=== PATIENT | female | born 1995 | race Caucasian/White ===

== ENCOUNTER 2025-07-17 15:47 | Outpatient (AMB) | payer MEDICAID, SELFPAY ==
[2025-07-17 15:56] VITALS: BP 144/85; PULSE 96; RESP 20; TEMP 36.8; O2SAT 96; BMI 33.6
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
== END 2025-07-17 16:31 | disposition home or self-care (01) ==
LOC: HODSRG 15:47
PROVIDERS: PCP Nurse Practitioner; Referring Provider Nurse Practitioner; Supervising Provider Surgery; Visit Provider Surgery
DX: K64.4 Residual hemorrhoidal skin tags (principal); K64.8 Other hemorrhoids
CPT/HCPCS: 99213; G0463

== ENCOUNTER 2025-08-18 10:53 | Outpatient (AMB) | payer MEDICAID, SELFPAY ==
[2025-08-18 11:03] VITALS: BP 138/100; PULSE 106; RESP 16; TEMP 36.7; O2SAT 98; BMI 33.4
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
== END 2025-08-18 11:49 | disposition home or self-care (01) ==
PROVIDERS: PCP Nurse Practitioner; Referring Provider Nurse Practitioner; Supervising Provider Surgery; Visit Provider Surgery
DX: K64.9 Unspecified hemorrhoids (principal)
CPT/HCPCS: 99213; G0463

== ENCOUNTER 2025-08-23 05:40 | Day surgery (SDC) | payer MEDICAID, SELFPAY ==
[2025-08-21 12:43] VITALS: BMI 33.3
--- NOTE | 2025-08-21 12:50 | EKG_ITS ---
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
[2025-08-21 13:39] LABS: Basophils # (Auto) 0.0 Thou/mm3 (0.0-0.2); Basophils % (Auto) 0 % (0-2.5); Eosinophils # (Auto) 0.1 Thou/mm3 (0.0-0.5); Eosinophils % (Auto) 2 % (0-10); Hematocrit 40.2 % (36.0-46.0); Hemoglobin 12.9 g/dL (12.0-16.0); Immature Granulocytes Auto 0.01 Thou/mm3 (0.00-0.00); Lymphocytes # (Auto) 2.2 Thou/mm3 (1.0-4.8); Lymphocytes % (Auto) 46 % (10-50); Mean Corpuscular HGB Conc 32.1 g/dl (31.0-37.0); Mean Corpuscular Hemoglobin 25.8 pg (25.0-35.0); Mean Corpuscular Volume 80 fL (80-100); Monocytes # (Auto) 0.4 Thou/mm3 (0.0-0.8); Monocytes % (Auto) 9 % (0-12); Neutrophils # (Auto) 2.1 Thou/mm3 (1.8-7.7); Neutrophils % (Auto) 43 % (37-80); Nucleated Red Blood Cell # 0.00 Thou/mm3 (0.00-0.00); Nucleated Red Blood Cell % 0 /100 WBC (0); Platelet Count 366 Thou/mm3 (140-440); RDW Standard Deviation 43.9 fL (36.4-46.3); Red Blood Count 5.00 Miln/mm3 (4.00-5.20); White Blood Count 4.8 Thou/mm3 (3.6-11.0)
[2025-08-21 13:48] LABS: Alanine Aminotransferase 33 U/L (10-49); Albumin, Serum 4.7 gm/dL (3.5-5.0); Albumin/Globulin Ratio 1.4 (1.2-2.2); Alkaline Phosphatase 62 U/L (46-116); Anion Gap 5 (7-16); Aspartate Amino Transferase 24 U/L (0-34); BUN/Creatinine Ratio 26 Ratio (12-20); Bilirubin,Total 0.3 mg/dL (0.3-1.2); Blood Urea Nitrogen 13 mg/dL (9-23); Calcium 10.0 mg/dL (8.3-10.6); Calcium (Corrected) 10.0 mg/dL (8.5-10.1); Carbon Dioxide 27.7 mMol/L (20.0-31.0); Chloride 106 mMol/L (98-107); Creatinine (Component) 0.5 mg/dL (0.6-1.3); Estimated Creatinine Clearance 188.1 mL/min (>60); Globulin 3.4 gm/dL (2.3-3.5); Glucose 86 mg/dL (74-106); Osmolality,Calculated 276 (275-295); Potassium 3.2 mMol/L (3.4-5.1); Sodium 139 mMol/L (136-145); Total Protein 8.1 gm/dL (5.7-8.2); eGFR > 60 See Note
[2025-08-21 13:49] LABS: HCG,Qualitative Serum Negative
[2025-08-21 13:56] LABS: INR 1.0 (0.9-1.3); Partial Thromboplastin Time 26.8 Seconds (22.0-36.0); Prothrombin Time 10.6 Seconds (9.0-12.2)
[2025-08-23] VITALS (10 sets, daily range): BP systolic 106–147; BP diastolic 73–101; PULSE 57–84; RESP 12–19; TEMP 36.6–36.8; O2SAT 95–100; BMI 33.3
[2025-08-23] MEDS: RINGERS LACTATED 1000 ML 1,000 ML 20 ML IV (06:34)
--- NOTE | 2025-08-23 08:46 | SUR.PHASEI ---
0846 Patient arrived to recovery resting comfortably in [facility], on oxygen 8L via oxy mask with an oral airway in place, breathing unlabored, vital signs stable, dressing intact to buttock; abd, mesh underwear, no bleeding noted, report received from Alisson ALAN and Lottie TRAN/Gretchen SRNA
--- NOTE | 2025-08-23 08:49 | ESOP_ITS ---
Date of Procedure 08/23/25 Pre Op Diagnosis Symptomatic hemorrhoids Post Op Diagnosis Same Procedure Excisional hemorrhoidectomy Findings Internal and external hemorrhoids Procedure Description After discussion of risks and benefits, pt was brought to OR, SCDs were placed and general anesthesia with LMA was induced. She was prepped and draped in the usual sterile fashion. After timeout a JACQUELINE was performed which was normal aside from hemorrhoids. A lubricated Rodriguez retractor was placed into the anus and the hemorrhoidal columns were examined. The largest was the right posterior so this was addressed first. A 2-0 chromic suture was used to place a figure of 8 suture at the apex of the right posterior hemorrhoid. This was tied and left in place to be used after the hemorrhoid was excised. I then placed a hemostat on the associated external hemorrhoidal tissue and incised the anoderm with a #15 blade. A hemostat was used to then separate the hemorrhoidal tissue from the underlying internal and external anal sphincters. When this dissection was complete the hemorrhoidal tissue was excised using a Harmonic scalpel. Hemostasis was achieved with electrocautery and the anal mucosa was reapproximated with the previously placed 2-0 chromic suture in a running and locking fashion. When the anoderm was reached the suture was continued in a non- locking fashion and then tied to itself. The right anterior and left lateral hemorrhoidal columns were addressed in identical manner. Left and right pudendal nerve blocks were performed with 0.5% marcaine as well as a local block for a total of 30cc. Hemostasis was achieved with direct pressure, electrocautery and reinforced with surgicell gauze. Pt was extubated and brought to PACU in stable condition Pathology / specimen Other (Right posterior, left lateral and right anterior hemorrhoids) Estimated Blood Loss 25 Surgeon Vivi Box MD Surgical Staff Operation Date: 08/23/25 07:30 Case Staff COATING MIXER TENDER: Michelle Rizvi
--- NOTE | 2025-08-23 08:56 | ESDS_ITS ---
Planned Discharge Date 08/23/25 DS: Providers Provider Primary care physician: Physician No Primary/Family Attending Provider on Admission: Vivi Box MD Attending Provider on DC: Vivi Box MD Discharging Provider: Vivi Box MD Diagnosis Discharge Diagnosis (1) Hemorrhoids: Status: Acute Problem List Completed Was Problem List Reviewed/Reconciled?: Yes Exam Vital Signs Temp Pulse Resp BP Pulse Ox 98.3 F 84 18 139/89 H 98 08/23/25 06:23 08/23/25 06:23 08/23/25 06:23 08/23/25 06:23 08/23/25 06:23 Discharge Plan Plan Patient Disposition: HOME (Self Care) Prescriptions/Referrals Prescriptions/Med Rec: No Action chlorthalidone 25 mg tablet 25 mg PO DAILY Patient Comments: TAKE 1 TABLET BY MOUTH EVERY DAY carvedilol 3.125 mg tablet 3.125 mg PO Q12H Patient Comments: TAKE 1 TABLET BY MOUTH TWICE A DAY WITH FOOD Referrals: Vivi Box MD [Physician, General Surgery] Referral Note: You will receive a text message to confirm your follow-up appt in 4 weeks No Primary/Family,Physician [Primary Care Provider] Patient/Caregiver Discharge Instructions Other Discharge Activity Instructions:: You may resume sitz baths as needed for pain, swelling and bleeding starting tomorrow 08/24 You may take ibuprofen/aleve as needed between doses of percocet or instead of percocet for mild to moderate pain Avoid constipation and diarrhea Drink plenty of fluids and take miralax as needed for constipation If you develop difficulty urinating, fever, pain not controlled by medications and/or bleeding that does not stop please seek care in ER Please feel free to call the office for any non-urgent concerns Education Materials: Eating a High-Fiber Diet, Discharge Instructions for ..., Taking a Sitz Bath Print Language: Zimbabwean Stand Alone Forms: [employer] Info., Patient Portal Info Letter Discharge Order Discharge Orders: Discharge (Routine); Ordered 08/23/25 Ordered By: Vivi Box PROCEDURES: Procedures Excisional hemorrhoidectomy
[2025-08-23] MEDS: ONDANSETRON INJ 2 MG/ML INJ 2 ML 4 MG IVP (09:15)
--- NOTE | 2025-08-23 10:05 | SUR.PHASEII ---
1005 patient getting dressing and feeling nausea, Michelle TRAN at [facility], verbal order read-back for Pepcid 20mg via IVP for nausea, will place order in EMR and administer per anesthesia order
[2025-08-23] MEDS: FAMOTIDINE INJ 10 MG/ML VIAL 2 ML 20 MG IVP (10:17)
--- NOTE | 2025-08-23 10:35 | SUR.PHASEII ---
1035 patient meets discharge criteria from recovery, awake and alert, breathing unlabored, vital signs stable, denies pain at rest, sore when sitting on buttock, per patient her nausea is tolerable, taking sips of 7up, assisted with dressing into her clothing by this underwriter mortgage loan, discharge instructions given to patient and patients mother, mother signed discharge instructions. Patient given all her belongings prior to discharge, transported via wheelchair and left in a private vehicle.
== END 2025-08-23 10:35 | disposition home or self-care (01) ==
PROVIDERS: Referring Provider Surgery; Visit Provider Surgery
PROC: (CPT 46260; principal; 2025-08-23 07:30)
DX: K64.8 Other hemorrhoids (principal); K64.4 Residual hemorrhoidal skin tags; Z01.810 Encounter for preprocedural cardiovascular examination
CPT/HCPCS: 46260; 36415; 80048; 80053; 84703; 85025; 85610; 85730; 93005; A4649; J0131; J1100; J1171; J1885; J2250; J2405; J2704; J3010; J3490; J7120; A9270

== ENCOUNTER 2025-09-18 14:40 | Outpatient (AMB) | payer MEDICAID, SELFPAY ==
[2025-09-18 14:55] VITALS: BP 128/88; PULSE 110; RESP 19; TEMP 36.8; O2SAT 97; BMI 33.5
--- NOTE | 2025-09-18 14:55 | PD.GSCLVISIT ---
Vital Signs - [facility] 09/18/25 14:55 Height 1.65 m Height Method Stated Weight 91.427 kg Weight Measurement Method Standing Scale BMI 33.5 BP 128/88 H Blood Pressure Source Automatic Cuff Blood Pressure Location Left Upper Arm Position Sitting Respiration 19 Pulse 110 H Pulse Source Monitor Temp 98.3 F Temp Source Temporal Artery Scan Pulse Oximetry (%) 97 Oxygen Delivery Method Room Air Med/Allergies Allergies & Medications Allergies Sulfa (Sulfonamide Antibiotics) Allergy (Verified 09/18/25 14:55) Medication Reconciliation carvedilol 3.125 mg tablet 3.125 mg PO Q12H 08/21/25 [History Confirmed 09/18/25] chlorthalidone 25 mg tablet 25 mg PO DAILY 08/21/25 [History Confirmed 09/18/25] ibuprofen 800 mg tablet 800 mg PO Q6H PRN pain #30 tabs 08/23/25 [Rx Confirmed 09/18/25] docusate sodium 100 mg capsule (Colace) 100 mg PO QDAY PRN constipation #30 caps 09/01/25 [Rx Confirmed 09/18/25] oxycodone-acetaminophen 5 mg-325 mg tablet (Percocet) 1 tab PO Q6H PRN pain #30 tabs 09/01/25 [Rx Confirmed 09/18/25] MA Intake Visit Data Collection New Patient or Established: Established Patient (seen at [facility] within 3 years) Seen by Clinical Staff ONLY (RN/MA): No Reason for Visit:: HEMORRHOIDECTOMY Pain Present Currently: No PCP or OBGYN visit in last 3 months: Yes Smoking Status Smoking Status: Never smoker (PT DOES NOT SMOKE TOBACCO BUT ADMITS TO SMOKING MARIJUANA) Immunization / Flu Flu Vaccine in the Last 12 Months: No Flu Vaccine Exclusion Criteria: Refused by Patient Past Medical History Past Medical History NEUROLOGIC: Negative Neurological Disorders or Seizures CARDIAC: Positive Cardiac Disorders and Hypertension; Negative Congestive Heart Failure RESPIRATORY: Positive Pneumonia; Negative Chronic Obstructive Pulmonary Disease (COPD) GASTROINTESTINAL: Positive Gastrointestinal Disorders and Hemorrhoids; Negative Hepatitis GENITOURINARY: Negative Genitourinary Disorders or Renal Disease REPRODUCTIVE: Positive Previous Pregnancies (x1) ENDOCRINE: Negative Endocrine Disorders, Diabetes Mellitus Type 1 or Diabetes Mellitus Type 2 HEMATOLOGIC: Negative Blood Disorders OTHER HISTORY: Negative Hospitalization, Autoimmune Disease, Shingles, Blood Transfusions, Blood Transfusion Reaction, Anesthesia Reactions, Clostridium Difficile or Cancer Family History FAMILY HISTORY: Positive Family Cardiac Disorders and Family Cancer; Negative Family Psychiatric Problems, Family Respiratory Disorders, Family Gastrointestinal Problems, Family Surgery or Family Anesthesia Reaction Surgical History SURGICAL: Positive Section (x1) Social History SMOKING STATUS: Smoking status: Never smoker (PT DOES NOT SMOKE TOBACCO BUT ADMITS TO SMOKING MARIJUANA) ALCOHOL: Alcohol Intake: Never HOUSING: Housing: House [facility] HPI Narrative HISTORY OF PRESENT ILLNESS I, Vivi Box, have obtained verbal consent from the patient, to be recorded during this encounter which may include, but not limited to, medical history, examination, treatment plans, and relevant health information.? Patient was informed that recording will be read and reviewed by myself before inclusion in the medical chart. The patient is here for a follow-up of her hemorrhoidectomy completed on 08/23/25. She reports that her condition has improved since the procedure. At first she had severe pain but for the last few days at least she has not needed any medications, not even Tylenol or Motrin. She was having constipation at first and using laxatives but overall feels her bowel movements have improved though with occasional straining. She is not having any bleeding, does have some tenderness especially on the left side of the perianal region which hurts a bit more when she has to wipe. She has returned to school and is using warm water in the shower to help with the pain ROS Review of Systems Systems Reviewed: All systems reviewed, normal except as documented Objective/Exam General General Appearance: alert, cooperative and well groomed Resp Respiratory exam: Absent respiratory distress Rectal Rectal exam: Present other (at left perianal region there is beefy red granulation tissue which is exquisitely tender, there is no erythema, no fluctuance or bleeding and no visible external hemorrhoids) Assessment & Plan Diagnosis / Problem List (1) Hemorrhoids: Status: Acute Assessment & Plan: Improvement in symptoms is reported, with minimal bleeding and some residual pain managed without medication. Physical examination reveals a raw wound on the left side, indicating ongoing healing. Sitz baths in the shower using hot water are advised. No further laxatives are needed if bowel movements can be achieved without straining. Follow-up in 3 weeks is recommended. Office Procedures GNS Level of Care Nursing/Assessment Patient Status: Established Patient Nursing Assessment/Reassesment: Medication Reconciliation, Update PMH in EMR and Vital Signs Coordination of Care: Complex Care and Chronic Disease 1-5, Consent,records obtained, informed consent, Education Simp Pt/Fam, Results/Orders obtained and Staff clarify orders Established Patient Charge Established Patient Point Assignment: 90 Established Patient Point Charge: EP Level 3 (80-115) Patient Portal Questionaires Social History Living Situation History Housing: House Tobacco History Smoking Status: Never smoker (PT DOES NOT SMOKE TOBACCO BUT ADMITS TO SMOKING MARIJUANA) Alcohol History Alcohol Intake: Never Review of Systems Report any current symptoms Only answer those that you have currently: Past Medical History Past Medical History Have you ever been diagnosed with any of the following: Neurological Problems Seizures: No Cardiology Problems Congestive Heart Failure: No Hypertension: Yes Respiratory Problems Chronic Obstructive Pulmonary Disease (COPD): No Pneumonia: Yes Stomache/Intestinal Problems Hepatitis: No Hemorrhoids: Yes Genital/Urinary Problems Renal Disease: No Reproductive Problems Previous Pregnancies: Yes (x1) Endocrine Problems Diabetes Mellitus Type 1: No Diabetes Mellitus Type 2: No Other Problems Hospitalization: No Autoimmune Disease: No Shingles: No Blood Transfusions: No Blood Transfusion Reaction: No Anesthesia Reactions: No Clostridium Difficile: No Cancer: No
== END 2025-09-18 15:19 | disposition home or self-care (01) ==
LOC: HODSRG 14:40
PROVIDERS: PCP Nurse Practitioner; Referring Provider Nurse Practitioner; Supervising Provider Surgery; Visit Provider Surgery
DX: Z48.815 Encounter for surgical aftercare following surgery on the digestive system (principal); I10 Essential (primary) hypertension
CPT/HCPCS: 99213; G0463

== ENCOUNTER 2025-10-23 15:01 | Outpatient (AMB) | payer MEDICAID, SELFPAY ==
[2025-10-23 15:15] VITALS: BP 124/85; PULSE 116; RESP 18; TEMP 36.6; O2SAT 98; BMI 33.6
--- NOTE | 2025-10-23 15:15 | GSCOFFNT_ITS ---
Vital Signs - [facility] 10/23/25 15:15 Height 1.65 m Height Method Measured Weight 91.626 kg Weight Measurement Method Standing Scale BMI 33.6 BP 124/85 H Blood Pressure Source Automatic Cuff Blood Pressure Location Left Upper Arm Position Sitting Respiration 18 Pulse 116 H Pulse Source Monitor Temp 98 F Temp Source Temporal Artery Scan Pulse Oximetry (%) 98 Oxygen Delivery Method Room Air Med/Allergies Allergies & Medications Allergies Sulfa (Sulfonamide Antibiotics) Allergy (Verified 10/23/25 15:16) Medication Reconciliation carvedilol 3.125 mg tablet 3.125 mg PO Q12H 08/21/25 [History Confirmed 10/23/25] chlorthalidone 25 mg tablet 25 mg PO DAILY 08/21/25 [History Confirmed 10/23/25] ibuprofen 800 mg tablet 800 mg PO Q6H PRN pain #30 tabs 08/23/25 [Rx Confirmed 10/23/25] docusate sodium 100 mg capsule (Colace) 100 mg PO QDAY PRN constipation #30 caps 09/01/25 [Rx Confirmed 10/23/25] oxycodone-acetaminophen 5 mg-325 mg tablet (Percocet) 1 tab PO Q6H PRN pain #30 tabs 09/01/25 [Rx Confirmed 10/23/25] MA Intake Visit Data Collection New Patient or Established: Established Patient (seen at [facility] within 3 years) Seen by Clinical Staff ONLY (RN/MA): No Reason for Visit:: 3 WEEK F/U Pain Present Currently: No Pain Scale Used: [employer] Required: No PCP or OBGYN visit in last 3 months: Yes Hx Now: No Do You Feel Safe at Home: Yes Authorities Contacted: N/A Smoking Status Smoking Status: Never smoker (PT DOES NOT SMOKE TOBACCO BUT ADMITS TO SMOKING MARIJUANA) Immunization / Flu Flu Vaccine in the Last 12 Months: Yes Flu Vaccine Exclusion Criteria: Already Received Past Medical History Past Medical History NEUROLOGIC: Negative Neurological Disorders or Seizures CARDIAC: Positive Cardiac Disorders and Hypertension; Negative Congestive Heart Failure RESPIRATORY: Positive Pneumonia; Negative Chronic Obstructive Pulmonary Disease (COPD) GASTROINTESTINAL: Positive Gastrointestinal Disorders and Hemorrhoids; Negative Hepatitis GENITOURINARY: Negative Genitourinary Disorders or Renal Disease REPRODUCTIVE: Positive Previous Pregnancies (x1) ENDOCRINE: Negative Endocrine Disorders, Diabetes Mellitus Type 1 or Diabetes Mellitus Type 2 HEMATOLOGIC: Negative Blood Disorders OTHER HISTORY: Negative Hospitalization, Autoimmune Disease, Shingles, Blood Transfusions, Blood Transfusion Reaction, Anesthesia Reactions, Clostridium Difficile or Cancer Family History FAMILY HISTORY: Positive Family Cardiac Disorders and Family Cancer; Negative Family Psychiatric Problems, Family Respiratory Disorders, Family Gastrointestinal Problems, Family Surgery or Family Anesthesia Reaction Surgical History SURGICAL: Positive Section (x1) Social History SMOKING STATUS: Smoking status: Never smoker (PT DOES NOT SMOKE TOBACCO BUT ADMITS TO SMOKING MARIJUANA) ALCOHOL: Alcohol Intake: Never HOUSING: Housing: House HPI HPI Narrative 29F s/p excisional hemorrhoidectomy 08/23/25 here for another follow up. Pt reports feeling much better, with no recent pains, no bleeding, only mild itching. 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 She is not needing any remedies such as sitz baths or creams ROS Review of Systems Systems Reviewed: All systems reviewed, normal except as documented Objective/Exam General General Appearance: alert, cooperative and well groomed Resp Respiratory exam: Absent respiratory distress Rectal Rectal exam: Present normal inspection Assessment & Plan Diagnosis / Problem List (1) Hemorrhoids: Status: Acute Assessment & Plan: 29F s/p excisional hemorrhoidectomy 08/23/25 here for another follow up, recovering very well with no concerns Plan: Follow up as needed Office Procedures GNS Level of Care Nursing/Assessment Patient Status: Established Patient Nursing Assessment/Reassesment: Medication Reconciliation, Update PMH in EMR and Vital Signs Coordination of Care: Complex Care and Chronic Disease 1-5, Education Complex Pt/Fam, Consent,records obtained, informed consent, Results/Orders obtained and Staff clarify orders Established Patient Charge Established Patient Point Assignment: 95 Established Patient Point Charge: EP Level 3 (80-115) Patient Portal Questionaires Social History Living Situation History Housing: House Tobacco History Smoking Status: Never smoker (PT DOES NOT SMOKE TOBACCO BUT ADMITS TO SMOKING MARIJUANA) Alcohol History Alcohol Intake: Never Domestic Abuse History Do You Feel Safe at Home: Yes Review of Systems Report any current symptoms Only answer those that you have currently: Past Medical History Past Medical History Have you ever been diagnosed with any of the following: Neurological Problems Seizures: No Cardiology Problems Congestive Heart Failure: No Hypertension: Yes Respiratory Problems Chronic Obstructive Pulmonary Disease (COPD): No Pneumonia: Yes Stomache/Intestinal Problems Hepatitis: No Hemorrhoids: Yes Genital/Urinary Problems Renal Disease: No Reproductive Problems Previous Pregnancies: Yes (x1) Endocrine Problems Diabetes Mellitus Type 1: No Diabetes Mellitus Type 2: No Other Problems Hospitalization: No Autoimmune Disease: No Shingles: No Blood Transfusions: No Blood Transfusion Reaction: No Anesthesia Reactions: No Clostridium Difficile: No Cancer: No
== END 2025-10-23 15:34 | disposition home or self-care (01) ==
LOC: HODSRG 15:01
PROVIDERS: PCP Nurse Practitioner; Referring Provider Nurse Practitioner; Supervising Provider Surgery; Visit Provider Surgery
DX: Z48.815 Encounter for surgical aftercare following surgery on the digestive system (principal); I10 Essential (primary) hypertension
CPT/HCPCS: 99213; G0463